=== PATIENT | female | born 1970 | race Caucasian/White ===

== ENCOUNTER 2018-06-12 08:49 | Outpatient (CLI) | payer OTHER ==
[2018-06-12 17:55] LABS: THYROID STIMULATING HORMONE 8.25 uIU/mL (0.34-5.60)
[2018-06-12 17:59] LABS: FREE T4 (FREE THYROXINE) 0.41 ng/dL (0.58-1.64)
[2018-06-12 18:24] LABS: BUN - BLOOD UREA NITROGEN 18 mg/dL (6-20); CALCIUM 9.1 mg/dL (8.5-10.3); CARBON DIOXIDE - CO2 27 mmol/L (21-32); CHLORIDE 104 mmol/L (101-111); CHOL/HDL RATIO 3.7 (<4.4); CHOLESTEROL 248 mg/dL; CREATININE 0.6 mg/dL (0.4-1.0); GFR - MDRD 106 (>89); GLUCOSE 93 mg/dL (70-100); HDL CHOLESTEROL 67 mg/dL; LDL CHOLESTEROL,CALCULATED 166 mg/dL; LDL/HDL RATIO 2.5 (<4.4); SODIUM 137 mmol/L (135-145); VLDL CHOLESTEROL 15 mg/dL
== END 2018-06-12 08:50 | disposition home or self-care (01) ==
LOC: LAB.F 08:49
PROVIDERS: ATTEND Internal Medicine
DX: Z00.00 Encounter for general adult medical examination without abnormal findings (principal); E03.9 Hypothyroidism, unspecified
CPT/HCPCS: 36415; 80048; 80061; 83721; 84439; 84443; 84481

== ENCOUNTER 2018-07-31 13:51 | Outpatient (CLI) | payer OTHER ==
--- NOTE | 2018-07-31 16:09 | Ultrasound Report ---
Reason: ABN MAMMO - LT SPEC VIEW ULTRASOUND Procedure Date: 07/31/2018 Accession Number: [id number] / [id number] Procedure: US - Breast Unilateral Limited CPT Code: FULL RESULT: EXAM: Breast Unilateral Limited DATE: 07/31/2018 3:02 PM CLINICAL HISTORY: Further evaluation after recall from screening exam 07/06/2018 for a new left breast finding at 1:00.. History of prior bilateral benign excisional biopsies for benign mass excisions in [place]. TECHNIQUE: Real-time ultrasound is performed by both the technologist and the radiologist in the upper outer quadrant left breast. COMPARISON: Mammograms from 07/06/2018 and outside mammograms from 12/03/2015. FINDINGS: At 1:00, 5 cm from nipple, there is an oval, parallel orientation, circumscribed margin hypoechoic mass with mixed posterior acoustic features showing moderate internal flow measuring 15 x 10 x 7 mm in dimension, corresponding to the mammographic finding recalled from screening. There are incidental cysts ranging in size from 5 to 8 mm in the 12:00 and 3:00 breast. 3:00 5 cm from nipple, there is an incidentally discovered oval, parallel, circumscribed margin hypoechoic mass measuring 6 x 6 x 3 mm. At at 12:00 to 1:00 (position somewhat variable) 6 cm from the nipple, a similar morphology 6 x 5 x 4 mm mass is also noted. IMPRESSION: 1. New 15 mm mass with nonaggressive morphologic features at 1:00, 5 cm from nipple corresponding to mammographic finding recalled from screening. Suspicious. BI-RADS Category 4. Ultrasound-guided biopsy is recommended as next step in evaluation. Biopsy scheduling was facilitated at the time of this imaging appointment. 2. Similar appearing 5 to 6 mm masses at 12 and 3:00 as described. Probably benign. BI-RADS Category 3. Six-month follow-up ultrasound surveillance is recommended. 3. Incidental simple cysts noted within the background breast parenchyma. Benign. BI-RADS Category 2.
== END 2018-07-31 13:52 | disposition home or self-care (01) ==
LOC: DI 13:51
PROVIDERS: ATTEND Internal Medicine
DX: R92.8 Other abnormal and inconclusive findings on diagnostic imaging of breast (principal); N63.20 Unspecified lump in the left breast, unspecified quadrant; N60.02 Solitary cyst of left breast
CPT/HCPCS: 76642

== ENCOUNTER 2018-08-09 09:45 | Outpatient (CLI) | payer OTHER ==
[2018-08-09] MEDS ORDERED: LIDOCAINE 1% 10 ML MDV ONE (10:32)
[2018-08-09] MEDS ORDERED: BUPIVACAINE 0.5%-EPI 1:200000 PF 10 ML VIAL SUBQ ONE (12:53)
[2018-08-09] MEDS ORDERED: BUFFERED LIDOCAINE 10 ML SYRINGE IU ONE (12:53)
--- NOTE | 2018-08-09 14:12 | Ultrasound Report ---
Reason: ABN MAMMO - LT BREAST NODULE Procedure Date: 08/09/2018 Accession Number: [id number] / [id number] Procedure: US - Biopsy Breast Core CPT Code: FULL RESULT: PROCEDURE: Ultrasound-guided needle biopsy left breast mass. CLINICAL DATA: Targeted mass measuring 1.3 x 1.0 cm with smooth margins in the 1 o'clock axis of the left breast. Informed consent was obtained. Using standard aseptic technique, both 1% buffered lidocaine and Sensorcaine were injected into the left breast for local anesthesia. A small kathy was made in the skin with a #11 blade. A 12-gauge CoSchedule vacuum-assisted device was used to obtain 4 core specimens. A specialized biopsy marker clip was placed into the biopsy cavity under ultrasound guidance. The patient was taken to separate mammography machine and a two-view digital mammography was performed to verify the clip placement and any complications. The mammography showed concordant clip placement. The wound was dressed and ice applied. The patient was observed for approximately 15 minutes, then was discharged from diagnostic imaging Department in good condition following instructions on wound care and obtaining biopsy results. The patient is scheduled to receive the biopsy results from the referring physician. The tissue was sent for histologic analysis. IMPRESSION: Ultrasound-guided biopsy of the left breast. AN ADDENDUM WILL BE MADE TO THIS REPORT WHEN PATHOLOGY IS REVIEWED TO ESTABLISH CONCORDANCE.
== END 2018-08-09 09:46 | disposition home or self-care (01) ==
LOC: DI 09:45
PROVIDERS: ATTEND Internal Medicine
DX: D24.2 Benign neoplasm of left breast (principal)
CPT/HCPCS: 19083

== ENCOUNTER 2018-08-17 13:22 | Outpatient (CLI) | payer OTHER ==
[2018-08-17 18:24] LABS: T4 (THYROXINE) 5.4 ug/dL (6.09-12.23)
[2018-08-17 18:28] LABS: THYROID STIMULATING HORMONE 0.42 uIU/mL (0.34-5.60)
== END 2018-08-17 13:23 | disposition home or self-care (01) ==
LOC: LAB.F 13:22
PROVIDERS: ATTEND Internal Medicine
DX: E03.9 Hypothyroidism, unspecified (principal)
CPT/HCPCS: 36415; 84436; 84443; 84480; 84481

== ENCOUNTER 2020-06-30 10:06 | Outpatient (CLI) | payer OTHER | END 2020-06-30 10:07 | disposition home or self-care (01) | LOC: COV 10:06 | PROVIDERS: ATTEND Family Medicine | DX: R50.9 Fever, unspecified (principal); Z20.828 Contact with and (suspected) exposure to other viral communicable diseases; M79.10 Myalgia, unspecified site; R53.83 Other fatigue; R43.9 Unspecified disturbances of smell and taste; J02.9 Acute pharyngitis, unspecified ==

== ENCOUNTER 2022-12-02 10:41 | Outpatient (CLI) | payer OTHER ==
--- NOTE | 2022-12-05 12:53 | Mammography Report ---
BILATERAL DIGITAL DIAGNOSTIC MAMMOGRAM 3D/2D: 12/02/2022 CLINICAL: Short term follow up of the left breast, due for bilateral imaging. Comparison is made to exams dated: 08/09/2018 mammogram, 07/06/2018 mammogram - [facility], and 12/03/2015 mammogram - [facility]. There are scattered areas of fibroglandular density in both breasts (category b / 25%-50% glandular t issue). No significant masses, calcifications, or other findings are seen in either breast. There has been no significant interval change. IMPRESSION: NEGATIVE There is no mammographic evidence of malignancy. A 1 year screening mammogram is recommended. Based on the Tyrer Cuzick model (a risk assessment model) the patients lifetime risk is 5.4% and her 10 year risk is 1.5%. According to the ACR, ACS, and NCCN guidelines, an annual breast MRI exam ismael g with mammogram is recommended if the patients lifetime risk is 20% or greater. This exam was interpreted at Station ID: [id number]. NOTE: For mammograms, a report in lay terms will be sent to the patient. Approximately 15% of breast malignancies will not be visualized mammographically. In the management of a palpable breast mass, a negative mammogram must not discourage biopsy of a clinically suspicious lesion. Electronically Signed By: Nusrat [email or web address]/[email or web address]:12/02/2022 11:39:47 letter sent: No_Letter ACR BI-RADS Category 1: Negative 3341F PARENCHYMAL PATTERN: (A) - The breast(s) demonstrate(s) scattered fibroglandular densities. BI-RADS CATEGORY: (1) - 1 Mammogram [id number] 1 year screening LATERALITY: (B)
== END 2022-12-02 10:42 | disposition home or self-care (01) ==
LOC: DI 10:41
PROVIDERS: ATTEND Nurse Practitioner
DX: D24.2 Benign neoplasm of left breast (principal)

== ENCOUNTER 2024-01-12 08:50 | Outpatient (CLI) | payer OTHER ==
[2024-01-12 09:04] LABS: BASOPHILS # (AUTO) 0.1 10^3/uL (0.0-0.1); BASOPHILS % (AUTO) 1.3 %; EOSINOPHILS # (AUTO) 0.2 10^3/uL (0.0-0.7); EOSINOPHILS % (AUTO) 3.5 %; HCT - HEMATOCRIT 42.9 % (37.0-47.0); HGB - HEMOGLOBIN 13.9 g/dL (12.0-16.0); LYMPHOCYTES # (AUTO) 3.3 10^3/uL (1.5-3.5); LYMPHOCYTES % (AUTO) 51.7 %; MEAN CORPUSCULAR HEMOGLOBIN 28.2 pg (27.0-31.0); MEAN CORPUSCULAR HGB CONC 32.4 g/dL (32.0-36.0); MEAN PLATELET VOLUME 8.7 fL (7.9-10.8); MONOCYTES # (AUTO) 0.5 10^3/uL (0.0-1.0); MONOCYTES % (AUTO) 8.4 %; NEUTROPHILS # (AUTO) 2.2 10^3/uL (1.5-6.6); NEUTROPHILS % (AUTO) 34.9 %; PLT - PLATELET COUNT 307 10^3/uL (130-450); RED BLOOD COUNT 4.93 10^6/uL (4.20-5.40); RED CELL DISTRIBUTION WIDTH 12.4 % (12.0-15.0); WHITE BLOOD COUNT 6.3 x10^3/uL (4.8-10.8)
[2024-01-12 09:14] LABS: ALBUMIN 4.5 g/dL (3.2-5.5); ALBUMIN/GLOBULIN RATIO 1.7 (1.0-2.2); ALKALINE PHOSPHATASE 93 IU/L (42-121); ALT ALANINE AMINOTRANSFERASE 13 IU/L (10-60); AST ASPARTATE AMINOTRANSFERASE 14 IU/L (10-42); BILIRUBIN,TOTAL 0.4 mg/dL (0.2-1.0); BUN - BLOOD UREA NITROGEN 18 mg/dL (6-20); CALCIUM 10.1 mg/dL (8.5-10.3); CARBON DIOXIDE - CO2 27 mmol/L (21-32); CHLORIDE 105 mmol/L (101-111); CHOL/HDL RATIO 3.9 (<4.4); CHOLESTEROL 216 mg/dL; CREATININE 0.7 mg/dL (0.6-1.3); GFR - MDRD 87 (>89); GLUCOSE 100 mg/dL (74-104); HDL CHOLESTEROL 56 mg/dL; LDL CHOLESTEROL,CALCULATED 137 mg/dL; LDL/HDL RATIO 2.4 (<4.4); POTASSIUM 4.3 mmol/L (3.5-4.5); SODIUM 139 mmol/L (135-145); TOTAL PROTEIN 7.1 g/dL (6.4-8.9); TRIGLYCERIDES 113 mg/dL (48-352); VLDL CHOLESTEROL 23 mg/dL
[2024-01-12 09:30] LABS: THYROID STIMULATING HORMONE 0.07 uIU/mL (0.34-5.60)
== END 2024-01-12 08:51 | disposition home or self-care (01) ==
LOC: LAB 08:50
PROVIDERS: ATTEND Physician Assistant
DX: E03.9 Hypothyroidism, unspecified (principal); G35 Multiple sclerosis; Z13.220 Encounter for screening for lipoid disorders
CPT/HCPCS: 36415; 80053; 80061; 83721; 84439; 84443; 85025